=== PATIENT | female | born 1970 | race Caucasian/White ===

== ENCOUNTER 2017-12-13 20:14 | Inpatient (IN) | payer MEDICARE ==
[~2017-12-13] VITALS: Ht 165.1 cm; Wt 104.3 kg
[2017-12-13] MEDS ORDERED: Hydromorphone 0.5mg/0.5ml inj IVP ONE ×2 (21:00→23:15)
--- NOTE | 2017-12-13 21:02 | Emergency Room Report ---
History of Present Illness General Chief Complaint: To Be Triaged Source: Patient Present Illness HPI Patient presents with 1 week of vomiting and diarrhea. She's also had fevers. She's had this before. She states that she has a history of colitis. Usually she is treated with Phenergan and Flagyl. The diarrhea has been brown in color. The abdominal pain is diffuse and cramping. She feels dehydrated at this time. She denies any dysuria. Pain rated 7/10, pressure, crampy, constant , not radiating. No URI sy, chest pain, rashes, headache, joint pain. Allergies: Coded Allergies: MORPHINE (Verified Allergy, Unknown, 12/13/17) ZOLPIDEM (Verified Allergy, Unknown, 12/13/17) Patient History Past Medical History: see triage record Social History: Denies: smoking, alcohol use Social History Narrative from home Reviewed Nursing Documentation: PMH: Agreed; PSxH: Agreed Physical Exam Vital Signs Date Time Temp Pulse Resp B/P (MAP) Pulse Ox O2 Delivery O2 Flow Rate FiO2 12/13/17 21:00 99.3 111 16 143/93 94 Room Air 99.3 Sp02 EP Interpretation: reviewed, normal General Appearance: well appearing, no apparent distress, GCS 15 Head: normocephalic Eyes: bilateral eye normal inspection, bilateral eye PERRL ENT: moist mucus membranes Neck: supple Respiratory: lungs clear, normal breath sounds Cardiovascular #1: regular rate, rhythm Cardiovascular #2: 2+ radial (R) Gastrointestinal: normal inspection, normal bowel sounds, no mass, non- distended, no guarding, no rebound, tenderness - LLQ Genitourinary: no CVA tenderness Musculoskeletal: back normal, gait/station normal, normal range of motion Neurologic: alert, oriented x3, grossly normal Psychiatric: mood/affect normal Skin: normal inspection, warm/dry, other - malar erythema - plethoric Medical Decision Making Diagnostic Impression: Primary Impression: Colitis Additional Impressions: Renal insufficiency Hyponatremia ER Course Patient presents with history of colitis and abdominal pain vomiting and diarrhea. Differential includes colitis, gastroenteritis, diverticulitis, urinary tract infection amongst others. The patient will be evaluated with a labs and urinalysis. The patient will be treated with IV hydration, Zofran and a dose of Dilaudid. WBC elevated. Renal insufficiency. Hyponatremia. (No prior h/o renal insufficiency according to patient.) Exam improved. Still with LLQ pain. Antibiotics begun. Admit med. Examined by Dr. Sinclair. Repeat dose of dilaudid. Laboratory Tests Test 12/13/17 21:30 White Blood Count 14.0 K/UL (4.8-10.8) H Red Blood Count 4.95 M/UL (4.20-5.40) Hemoglobin 14.5 G/DL (12.0-16.0) Hematocrit 43.1 % (37.0-47.0) Mean Corpuscular Volume 87 FL (80-99) Mean Corpuscular Hemoglobin 29.3 PG (27.0-31.0) Mean Corpuscular Hemoglobin Concent 33.6 G/DL (32.0-36.0) Red Cell Distribution Width 12.4 % (11.6-14.8) Platelet Count 448 K/UL (150-450) Mean Platelet Volume 6.4 FL (6.5-10.1) L Neutrophils (%) (Auto) 57.7 % (45.0-75.0) Lymphocytes (%) (Auto) 35.7 % (20.0-45.0) Monocytes (%) (Auto) 4.8 % (1.0-10.0) Eosinophils (%) (Auto) 0.5 % (0.0-3.0) Basophils (%) (Auto) 1.3 % (0.0-2.0) Urine Color Brown Urine Appearance Slightly cloudy Urine pH 5 (4.5-8.0) Urine Specific [place] 1.025 (1.005-1.035) Urine Protein 2+ (NEGATIVE) H Urine Glucose (UA) 1+ (NEGATIVE) H Urine Ketones 2+ (NEGATIVE) H Urine Blood Negative (NEGATIVE) Urine Nitrite Negative (NEGATIVE) Urine Bilirubin 2+ (NEGATIVE) H Urine Ictotest Negative (NEGATIVE) Urine Urobilinogen 1 MG/DL (0.0-1.0) H Urine Leukocyte Esterase 1+ (NEGATIVE) H Urine RBC 0-2 /HPF (0 - 2) Urine WBC 2-4 /HPF (0 - 2) Urine Squamous Epithelial Cells Few /LPF (NONE/OCC) Urine Bacteria Few /HPF (NONE) Urine HCG, Qualitative Negative (NEGATIVE) Sodium Level 130 MMOL/L (136-145) L Potassium Level 3.8 MMOL/L (3.5-5.1) Chloride Level 89 MMOL/L (98-107) L Carbon Dioxide Level 26 MMOL/L (21-32) Anion Gap 15 mmol/L (5-15) Blood Urea Nitrogen 19 mg/dL (7-18) H Creatinine 1.6 MG/DL (0.55-1.30) H Estimate Glomerular Filtration Rate 34.4 mL/min (>60) Glucose Level 222 MG/DL (74-106) H Calcium Level 9.7 MG/DL (8.5-10.1) Total Bilirubin 0.5 MG/DL (0.2-1.0) Aspartate Amino Transferase (AST) 53 U/L (15-37) H Alanine Aminotransferase (ALT) 88 U/L (12-78) H Alkaline Phosphatase 76 U/L (46-116) Total Protein 9.3 G/DL (6.4-8.2) H Albumin 4.2 G/DL (3.4-5.0) Globulin 5.1 g/dL Albumin/Globulin Ratio 0.8 (1.0-2.7) L Lipase 86 U/L (73-393) Last Vital Signs Date Time Temp Pulse Resp B/P (MAP) Pulse Ox O2 Delivery O2 Flow Rate FiO2 12/14/17 08:00 97.7 91 20 134/88 (103) 92 97.7 12/14/17 01:55 Room Air Status: improved Disposition: ADMITTED INPATIENT Condition: Serious Davion Lozano M.D. Dec 13, 2017 21:02
[2017-12-13] MEDS ORDERED: METFORMIN HCL1000 M1 ORAL (21:07)
[2017-12-13 21:14] VITALS: BP 143/93
[2017-12-13 22:16] VITALS: BP 125/82
[2017-12-13 22:21] LABS: BASOPHILS % (AUTO) 1.3 % (0.0-2.0); BILIRUBIN, URINE 2+ (NEGATIVE); COLOR,URINE BROWN; EOSINOPHILS % (AUTO) 0.5 % (0.0-3.0); GLUCOSE, URINE (UA) 1+ (NEGATIVE); HEMATOCRIT 43.1 % (37.0-47.0); HEMOGLOBIN 14.5 G/DL (12.0-16.0); KETONES,URINE 2+ (NEGATIVE); LEUKOCYTE ESTERASE ,URINE 1+ (NEGATIVE); LYMPHOCYTES % (AUTO) 35.7 % (20.0-45.0); MEAN CORPUSCULAR VOLUME 87 FL (80-99); MONOCYTES % (AUTO) 4.8 % (1.0-10.0); NEUTROPHILS % (AUTO) 57.7 % (45.0-75.0); NITRITE,URINE NEGATIVE (NEGATIVE); PH,URINE 5 (4.5-8.0); PLATELET COUNT 448 K/UL (150-450); PROTEIN,URINE 2+ (NEGATIVE); RED BLOOD COUNT 4.95 M/UL (4.20-5.40); RED CELL DISTRIBUTION WIDTH 12.4 % (11.6-14.8); UROBILINOGEN,URINE 1 MG/DL (0.0-1.0)
[2017-12-13 22:24] LABS: ANION GAP 15 mmol/L (5-15); BLOOD UREA NITROGEN 19 mg/dL (7-18); CALCIUM 9.7 MG/DL (8.5-10.1); CARBON DIOXIDE 26 MMOL/L (21-32); CHLORIDE 89 MMOL/L (98-107); CREATININE 1.6 MG/DL (0.55-1.30); POTASSIUM 3.8 MMOL/L (3.5-5.1); SODIUM 130 MMOL/L (136-145)
[2017-12-13 22:28] LABS: APPEARANCE,URINE SLIGHTLY CLOUDY
[2017-12-13 22:29] LABS: ALANINE AMINOTRANSFERASE 88 U/L (12-78); ALBUMIN 4.2 G/DL (3.4-5.0); ALBUMIN/GLOBULIN RATIO 0.8 (1.0-2.7); ALKALINE PHOSPHATASE 76 U/L (46-116); ASPARTATE AMINO TRANSFERASE 53 U/L (15-37); BILIRUBIN,TOTAL 0.5 MG/DL (0.2-1.0)
[2017-12-13] MEDS ORDERED: Cefepime HCl 1 GM in D5W 55 ML IVPB ONE (23:15)
[2017-12-13 23:55] VITALS: BP 117/67
--- NOTE | 2017-12-14 00:21 | Consultation ---
History of Present Illness General Date patient seen: Dec 14, 2017 Chief Complaint: Nausea, Vomiting, and Diarrhea Reason for Consultation: diverticulitis Present Illness HPI 47F otherwise healthy presented with abdominal pain for 6 days. States that after her birthday on the she began to develop worsening lower abdominal pain. pain cramping left sided lower abdominal pain 10. pain associated with nausea, emesis, and non blood diarrhea. as pain and symptoms did not improve she came to ED for evaluation today. In ED noted to have leukocytosis and exam with LLQ tenderness. Surgery called to evaluate. patient seen, chart reviewed, patient examined. States history of two similar prior episodes. First episode 3 years ago and was hospitalized for 8 days. Second episode was last year and was managed at home with oral abx under supervision of her PCP. Since has been well until recent episode. Currently improving since given pain medication in ED. Has had colonoscopy and EGD in past. Allergies: Coded Allergies: MORPHINE (Verified Allergy, Unknown, 12/13/17) ZOLPIDEM (Verified Allergy, Unknown, 12/13/17) Medication History Scheduled Metformin Hcl* (Metformin Hcl*), 1,000 MG ORAL BID, (Reported) Patient History History Provided By: Patient, Medical Record, PMD Healthcare decision maker Resuscitation status Advanced Directive on File Past Medical/Surgical History Past Medical/Surgical History: (1) Hyponatremia (2) Renal insufficiency (3) Colitis Review of Systems Constitutional: Denies: no symptoms, see HPI, chills, sweats, fever, malaise, weakness, other Eye: Denies: no symptoms, see HPI, eye pain, blurred vision, tearing, double vision, nose pain, nose congestion, acuity changes, discharge, other ENT: Denies: no symptoms, see HPI, ear pain, ear discharge, nose pain, nose congestion, throat pain, throat swelling, mouth pain, hearing loss, nasal discharge, other Respiratory: Denies: no symptoms, see HPI, cough, orthopnea, shortness of breath, stridor, wheezing, SWAIN, sputum, other Cardiovascular: Denies: no symptoms, see HPI, chest pain, edema, palpitations, syncope, PND, other Gastrointestinal: Reports: abdominal pain, diarrhea, nausea, vomiting Genitourinary: Denies: no symptoms, see HPI, discharge, dysuria, frequency, hematuria, pain, retention, incontinence, urgency, vag bleed/dc, other Musculoskeletal: Denies: no symptoms, see HPI, back pain, gout, joint pain, joint swelling, muscle pain, muscle stiffness, other Skin: Denies: no symptoms, see HPI, rash, change in color, change in hair/nails , dryness, lesions, other Psychiatric: Denies: no symptoms, see HPI, prior hx, anxiety, depressed feelings, emotional problems, SI, HI, hallucinations, other Neurological: Denies: no symptoms, see HPI, headache, numbness, paresthesia, seizure, tingling, tremors, focal weakness, syncope, dizziness, other Endocrine: Denies: no symptoms, see HPI, excessive sweating, flushing, intolerance to temperature, increased thirst, increased urine, unexplained weight loss, other Hematologic/Lymphatic: Denies: no symptoms, see HPI, anemia, blood clots, easy bleeding, easy bruising, swollen glands, diathesis, other All Other Systems: negative except mentioned in HPI Physical Exam General Appearance: no apparent distress, alert Lines, tubes and drains: peripheral HEENT: atraumatic, mucous membranes moist Neck: supple, normal inspection Respiratory/Chest: normal breath sounds, no respiratory distress, no accessory muscle use Cardiovascular/Chest: normal rate, regular rhythm Abdomen: normal bowel sounds, soft, no organomegaly, no mass, tender - tender, no rebound, no guarding Extremities: normal inspection Skin Exam: normal pigmentation, warm/dry Neurologic: crane rigger II-XII grossly normal, alert, oriented x 3 Last 24 Hour Vital Signs Date Time Temp Pulse Resp B/P (MAP) Pulse Ox O2 Delivery O2 Flow Rate FiO2 12/13/17 23:55 98.9 105 17 117/67 94 Room Air 98.9 12/13/17 23:29 99.3 12/13/17 22:16 99.3 102 16 125/82 94 Room Air 99.3 12/13/17 22:12 99.3 12/13/17 22:12 99.3 12/13/17 21:42 99.3 12/13/17 21:14 99.3 111 16 143/93 94 Room Air 99.3 12/13/17 21:00 99.3 111 16 143/93 94 Room Air 99.3 Laboratory Tests Test 12/13/17 21:30 White Blood Count 14.0 K/UL (4.8-10.8) H Red Blood Count 4.95 M/UL (4.20-5.40) Hemoglobin 14.5 G/DL (12.0-16.0) Hematocrit 43.1 % (37.0-47.0) Mean Corpuscular Volume 87 FL (80-99) Mean Corpuscular Hemoglobin 29.3 PG (27.0-31.0) Mean Corpuscular Hemoglobin Concent 33.6 G/DL (32.0-36.0) Red Cell Distribution Width 12.4 % (11.6-14.8) Platelet Count 448 K/UL (150-450) Mean Platelet Volume 6.4 FL (6.5-10.1) L Neutrophils (%) (Auto) 57.7 % (45.0-75.0) Lymphocytes (%) (Auto) 35.7 % (20.0-45.0) Monocytes (%) (Auto) 4.8 % (1.0-10.0) Eosinophils (%) (Auto) 0.5 % (0.0-3.0) Basophils (%) (Auto) 1.3 % (0.0-2.0) Urine Color Brown Urine Appearance Slightly cloudy Urine pH 5 (4.5-8.0) Urine Specific [place] 1.025 (1.005-1.035) Urine Protein 2+ (NEGATIVE) H Urine Glucose (UA) 1+ (NEGATIVE) H Urine Ketones 2+ (NEGATIVE) H Urine Blood Negative (NEGATIVE) Urine Nitrite Negative (NEGATIVE) Urine Bilirubin 2+ (NEGATIVE) H Urine Ictotest Negative (NEGATIVE) Urine Urobilinogen 1 MG/DL (0.0-1.0) H Urine Leukocyte Esterase 1+ (NEGATIVE) H Urine RBC 0-2 /HPF (0 - 2) Urine WBC 2-4 /HPF (0 - 2) Urine Squamous Epithelial Cells Few /LPF (NONE/OCC) Urine Bacteria Few /HPF (NONE) Urine HCG, Qualitative Negative (NEGATIVE) Sodium Level 130 MMOL/L (136-145) L Potassium Level 3.8 MMOL/L (3.5-5.1) Chloride Level 89 MMOL/L (98-107) L Carbon Dioxide Level 26 MMOL/L (21-32) Anion Gap 15 mmol/L (5-15) Blood Urea Nitrogen 19 mg/dL (7-18) H Creatinine 1.6 MG/DL (0.55-1.30) H Estimat Glomerular Filtration Rate 34.4 mL/min (>60) Glucose Level 222 MG/DL (74-106) H Calcium Level 9.7 MG/DL (8.5-10.1) Total Bilirubin 0.5 MG/DL (0.2-1.0) Aspartate Amino Transf (AST/SGOT) 53 U/L (15-37) H Alanine Aminotransferase (ALT/SGPT) 88 U/L (12-78) H Alkaline Phosphatase 76 U/L (46-116) Total Protein 9.3 G/DL (6.4-8.2) H Albumin 4.2 G/DL (3.4-5.0) Globulin 5.1 g/dL Albumin/Globulin Ratio 0.8 (1.0-2.7) L Lipase 86 U/L (73-393) Height (Feet): 5 Height (Inches): 5.00 Weight (Pounds): 230 Medications Current Medications Medications (Trade) Dose Ordered Sig/Tiff Route PRN Reason Start Time Stop Time Status Last Admin Dose Admin Acetaminophen (Tylenol) 650 mg Q4H PRN ORAL Mild Pain (Pain Scale 1-3) 12/14/17 00:00 01/13/18 00:00 Dextrose (Dextrose 50%) 25 ml Q30M PRN IV Hypoglycemia 12/14/17 00:00 01/13/18 00:00 Dextrose (Dextrose 50%) 50 ml Q30M PRN IV Hypoglycemia 12/14/17 00:00 01/13/18 00:00 Enoxaparin Sodium (Lovenox) 40 mg DAILY SUBQ 12/14/17 09:00 01/13/18 08:59 Insulin Aspart (NovoLOG) BEFORE MEALS AND HS SUBQ 12/14/17 06:30 01/13/18 06:29 Ondansetron HCl (Zofran) 4 mg Q6H PRN IVP Nausea & Vomiting 12/14/17 00:00 01/13/18 00:00 Sodium Chloride 1,000 ml @ 125 mls/hr Q8H IVLG 12/14/17 00:50 01/13/18 00:49 Assessment/Plan Problem List: (1) Colitis Assessment & Plan: 47F with acute colitis/diverticulitis. Afebrile, HD stable , leukocytosis, exam with LLQ tenderness. No acute surgical intervention indicated NPO IV fluids IV Abx serial abdominal exams thank you for this consultation. will follow with recs. ICD Codes: K52.9 - Noninfective gastroenteritis and colitis, unspecified SNOMED: [id number] Status: stable Joe Sinclair Dec 14, 2017 00:21
[2017-12-14 01:20] VITALS: BP 137/89
[2017-12-14] MEDS: Piperacillin/Tazobactam 3.375 GM in NS 110 ML IVPB SCH ×3 (03:19→18:06)
[2017-12-14] MEDS: HYDROmorphone 1mg/ml Carpuject IVP PRN ×5 (03:20→20:30)
[2017-12-14 04:00] VITALS: BP 122/75
[2017-12-14 05:04] LABS: BASOPHILS % (AUTO) 1.7 % (0.0-2.0); EOSINOPHILS % (AUTO) 1.8 % (0.0-3.0); HEMATOCRIT 35.4 % (37.0-47.0); MEAN CORPUSCULAR VOLUME 85 FL (80-99); MONOCYTES % (AUTO) 8.8 % (1.0-10.0); NEUTROPHILS % (AUTO) 49.8 % (45.0-75.0); PLATELET COUNT 299 K/UL (150-450); RED BLOOD COUNT 4.17 M/UL (4.20-5.40); WHITE BLOOD COUNT 9.7 K/UL (4.8-10.8)
[2017-12-14 05:15] LABS: ANION GAP 9 mmol/L (5-15); BLOOD UREA NITROGEN 15 mg/dL (7-18); CALCIUM 8.5 MG/DL (8.5-10.1); CARBON DIOXIDE 29 MMOL/L (21-32); CHLORIDE 96 MMOL/L (98-107); POTASSIUM 2.8 MMOL/L (3.5-5.1); SODIUM 134 MMOL/L (136-145)
[2017-12-14] MEDS: NovoLOG Insulin Flexpen SUBQ SCH ×5 (06:03→20:35)
[2017-12-14 08:00] VITALS: BP 134/88
[2017-12-14] MEDS: Enoxaparin 40mg Inj SUBQ SCH (10:16)
[2017-12-14] MEDS ORDERED: Tubing IV Secondary IV ONE (10:31)
[2017-12-14 12:00] VITALS: BP 125/91
[2017-12-14] MEDS ORDERED: Isovue-300 100ml vial INJ PRN (12:00)
--- NOTE | 2017-12-14 12:00 | General Surgery Progress Note ---
General Surgery-Progress Note Subjective Symptoms: pain same, passing flatus Additional Comments no acute events. states pain unchanged. still LLQ abd pain. no n/v/f/c. leukocytosis resolved Objective Last 24 Hour Vital Signs Date Time Temp Pulse Resp B/P (MAP) Pulse Ox O2 Delivery O2 Flow Rate FiO2 12/14/17 08:00 97.7 91 20 134/88 (103) 92 97.7 12/14/17 04:00 98.9 92 18 122/75 (91) 94 98.9 12/14/17 01:55 Room Air 12/14/17 01:20 98.2 83 20 137/89 (105) 94 98.2 12/14/17 01:03 98.0 81 20 136/69 96 12/13/17 23:55 98.9 105 17 117/67 94 Room Air 98.9 12/13/17 23:29 99.3 12/13/17 22:16 99.3 102 16 125/82 94 Room Air 99.3 12/13/17 22:12 99.3 12/13/17 22:12 99.3 12/13/17 21:42 99.3 12/13/17 21:14 99.3 111 16 143/93 94 Room Air 99.3 12/13/17 21:00 99.3 111 16 143/93 94 Room Air 99.3 I&O Intake and Output 12/13/17 12/14/17 19:00 07:00 Intake Total 207.5 ml Balance 207.5 ml Intake IV Total 207.5 ml # Voids 3 Drains: none Cardiovascular: RSR Respiratory: clear Abdomen: soft, flat, tenderness, present bowel sounds Extremities: no tenderness, no cyanosis Laboratory Tests Test 12/13/17 21:30 12/14/17 04:26 White Blood Count 14.0 K/UL (4.8-10.8) H 9.7 K/UL (4.8-10.8) Red Blood Count 4.95 M/UL (4.20-5.40) 4.17 M/UL (4.20-5.40) L Hemoglobin 14.5 G/DL (12.0-16.0) 12.0 G/DL (12.0-16.0) Hematocrit 43.1 % (37.0-47.0) 35.4 % (37.0-47.0) L Mean Corpuscular Volume 87 FL (80-99) 85 FL (80-99) Mean Corpuscular Hemoglobin 29.3 PG (27.0-31.0) 28.8 PG (27.0-31.0) Mean Corpuscular Hemoglobin Concent 33.6 G/DL (32.0-36.0) 33.9 G/DL (32.0-36.0) Red Cell Distribution Width 12.4 % (11.6-14.8) 12.0 % (11.6-14.8) Platelet Count 448 K/UL (150-450) 299 K/UL (150-450) Mean Platelet Volume 6.4 FL (6.5-10.1) L 7.1 FL (6.5-10.1) Neutrophils (%) (Auto) 57.7 % (45.0-75.0) 49.8 % (45.0-75.0) Lymphocytes (%) (Auto) 35.7 % (20.0-45.0) 38.0 % (20.0-45.0) Monocytes (%) (Auto) 4.8 % (1.0-10.0) 8.8 % (1.0-10.0) Eosinophils (%) (Auto) 0.5 % (0.0-3.0) 1.8 % (0.0-3.0) Basophils (%) (Auto) 1.3 % (0.0-2.0) 1.7 % (0.0-2.0) Urine Color Brown Urine Appearance Slightly cloudy Urine pH 5 (4.5-8.0) Urine Specific [place] 1.025 (1.005-1.035) Urine Protein 2+ (NEGATIVE) H Urine Glucose (UA) 1+ (NEGATIVE) H Urine Ketones 2+ (NEGATIVE) H Urine Blood Negative (NEGATIVE) Urine Nitrite Negative (NEGATIVE) Urine Bilirubin 2+ (NEGATIVE) H Urine Ictotest Negative (NEGATIVE) Urine Urobilinogen 1 MG/DL (0.0-1.0) H Urine Leukocyte Esterase 1+ (NEGATIVE) H Urine RBC 0-2 /HPF (0 - 2) Urine WBC 2-4 /HPF (0 - 2) Urine Squamous Epithelial Cells Few /LPF (NONE/OCC) Urine Bacteria Few /HPF (NONE) Urine HCG, Qualitative Negative (NEGATIVE) Sodium Level 130 MMOL/L (136-145) L 134 MMOL/L (136-145) L Potassium Level 3.8 MMOL/L (3.5-5.1) 2.8 MMOL/L (3.5-5.1) L Chloride Level 89 MMOL/L (98-107) L 96 MMOL/L (98-107) L Carbon Dioxide Level 26 MMOL/L (21-32) 29 MMOL/L (21-32) Anion Gap 15 mmol/L (5-15) 9 mmol/L (5-15) Blood Urea Nitrogen 19 mg/dL (7-18) H 15 mg/dL (7-18) Creatinine 1.6 MG/DL (0.55-1.30) H 1.0 MG/DL (0.55-1.30) Estimat Glomerular Filtration Rate 34.4 mL/min (>60) 59.2 mL/min (>60) Glucose Level 222 MG/DL (74-106) H 172 MG/DL (74-106) H Calcium Level 9.7 MG/DL (8.5-10.1) 8.5 MG/DL (8.5-10.1) Total Bilirubin 0.5 MG/DL (0.2-1.0) Aspartate Amino Transf (AST/SGOT) 53 U/L (15-37) H Alanine Aminotransferase (ALT/SGPT) 88 U/L (12-78) H Alkaline Phosphatase 76 U/L (46-116) Total Protein 9.3 G/DL (6.4-8.2) H Albumin 4.2 G/DL (3.4-5.0) Globulin 5.1 g/dL Albumin/Globulin Ratio 0.8 (1.0-2.7) L Lipase 86 U/L (73-393) Plan Problems: (1) Colitis Assessment & Plan: 47F with acute colitis/diverticulitis. Afebrile, HD stable , leukocytosis, exam with LLQ tenderness. leukocytosis resolved pain unchanged No acute surgical intervention indicated NPO IV fluids IV Abx CT A/P today thank you for this consultation. will follow with recs. Joe Sinclair Dec 14, 2017 12:00
--- NOTE | 2017-12-14 12:15 | History and Physical Report ---
DATE OF ADMISSION: 12/13/2017 DATE OF ADMISSION: December 14, 2017 REASON FOR ADMISSION: 1. Abdominal pain. 2. Diverticulitis. 3. Hyponatremia. 4. Acute kidney injury. HISTORY OF PRESENT ILLNESS: The patient is a pleasant 47-year-old female visiting from [place] in [place]. She presented to emergency room overnight with worsening abdominal pain for 6 days that started after her birthday on the [birth year] of [birth year]. She is visiting again here in [place] from [place] in [place]. She has had previous diverticulitis episodes where she notes that the pain will last anywhere from 4 to 8 days and requiring hospitalization in the past. She had a colonoscopy and an EGD in the past. General Surgery has evaluated the patient. IV antibiotics have been initiated. The patient is resting comfortably. Creatinine on admission was 1.6. The patient had no renal dysfunction prior to this. ALLERGIES: Morphine and zolpidem. PAST MEDICAL HISTORY: 1. Diverticulitis. 2. Diabetes mellitus. 3. Obesity. FAMILY HISTORY: Positive for diabetes. PAST SURGICAL HISTORY: 1. Colonoscopy. 2. EGD. LABORATORIES: Dated December 14, 2017, sodium 134, potassium 2.8, creatinine 1. White cell count 9.7, hemoglobin 12, and platelet count 299,000. PHYSICAL EXAMINATION: VITAL SIGNS: Blood pressure 134/88, respiratory rate 20, 92% oxygen saturation on room air, temperature 97.7, pulse 91. GENERAL: The patient is awake, alert, not otherwise in distress. HEENT: No lymphadenopathy noted. Oropharyngeal mucosa, clear and dry. CARDIOVASCULAR: S1, S2. No rubs or gallops. Regular rate. PULMONARY: Clear to auscultation bilaterally. No rales, rhonchi, or wheeze. ABDOMEN: Obese with mild tenderness in all 4 quadrants. EXTREMITIES: No edema noted. Fair pedal pulses. ASSESSMENT AND PLAN: 1. Abdominal pain secondary to diverticulitis. IV antibiotics have been initiated. Infectious Disease has been consulted. Appreciate General Surgery evaluation and management. Continue conservative medical therapy at this time. Pain management per General Surgery. 2. Hypokalemia. The patient will receive 40 mEq of IV potassium. 3. Hyponatremia secondary to vascular volume depletion. It has improved. Continue IV fluids. 4. Acute kidney injury secondary to volume depletion. Creatinine has improved from 1.6 to 1.0. No further renal investigations required at this time. Continue IV fluids. 5. DVT prophylaxis with Lovenox subcutaneous. Cosme Stoner MD DR: Robert JOB#: [id number] CC: MARIO
[2017-12-14] MEDS: D5 1/2NS 1,000 ML IV SCH ×2 (12:43→22:39)
--- NOTE | 2017-12-14 14:07 | Infectious Diseases Prog Note ---
Assessment/Plan Problems: (1) Diverticulitis Assessment & Plan: rule out complications such as perforations , CT ABD with contrast is pending, continue zosyn empirically , general surgery is following (2) Abdominal pain Assessment & Plan: due to the above , continue paian management and antibiotics pending CT of the abdomen (3) Diarrhea Assessment & Plan: suspect due to the above, resolved, continue hydration (4) Sepsis Assessment & Plan: with leukocytosis , due to the above, will send blood culture, continue zosyn Subjective Allergies: Coded Allergies: MORPHINE (Verified Allergy, Unknown, 12/13/17) ZOLPIDEM (Verified Allergy, Unknown, 12/13/17) Objective Vital Signs Last 24 Hour Vital Signs Date Time Temp Pulse Resp B/P (MAP) Pulse Ox O2 Delivery O2 Flow Rate FiO2 12/14/17 12:00 98.8 85 20 125/91 (102) 94 98.8 12/14/17 08:00 97.7 91 20 134/88 (103) 92 97.7 12/14/17 04:00 98.9 92 18 122/75 (91) 94 98.9 12/14/17 01:55 Room Air 12/14/17 01:20 98.2 83 20 137/89 (105) 94 98.2 12/14/17 01:03 98.0 81 20 136/69 96 12/13/17 23:55 98.9 105 17 117/67 94 Room Air 98.9 12/13/17 23:29 99.3 12/13/17 22:16 99.3 102 16 125/82 94 Room Air 99.3 12/13/17 22:12 99.3 12/13/17 22:12 99.3 12/13/17 21:42 99.3 12/13/17 21:14 99.3 111 16 143/93 94 Room Air 99.3 12/13/17 21:00 99.3 111 16 143/93 94 Room Air 99.3 Height (Feet): 5 Height (Inches): 5.00 Weight (Pounds): 230 Laboratory Tests Test 12/13/17 21:30 12/14/17 04:26 White Blood Count 14.0 K/UL (4.8-10.8) H 9.7 K/UL (4.8-10.8) Red Blood Count 4.95 M/UL (4.20-5.40) 4.17 M/UL (4.20-5.40) L Hemoglobin 14.5 G/DL (12.0-16.0) 12.0 G/DL (12.0-16.0) Hematocrit 43.1 % (37.0-47.0) 35.4 % (37.0-47.0) L Mean Corpuscular Volume 87 FL (80-99) 85 FL (80-99) Mean Corpuscular Hemoglobin 29.3 PG (27.0-31.0) 28.8 PG (27.0-31.0) Mean Corpuscular Hemoglobin Concent 33.6 G/DL (32.0-36.0) 33.9 G/DL (32.0-36.0) Red Cell Distribution Width 12.4 % (11.6-14.8) 12.0 % (11.6-14.8) Platelet Count 448 K/UL (150-450) 299 K/UL (150-450) Mean Platelet Volume 6.4 FL (6.5-10.1) L 7.1 FL (6.5-10.1) Neutrophils (%) (Auto) 57.7 % (45.0-75.0) 49.8 % (45.0-75.0) Lymphocytes (%) (Auto) 35.7 % (20.0-45.0) 38.0 % (20.0-45.0) Monocytes (%) (Auto) 4.8 % (1.0-10.0) 8.8 % (1.0-10.0) Eosinophils (%) (Auto) 0.5 % (0.0-3.0) 1.8 % (0.0-3.0) Basophils (%) (Auto) 1.3 % (0.0-2.0) 1.7 % (0.0-2.0) Urine Color Brown Urine Appearance Slightly cloudy Urine pH 5 (4.5-8.0) Urine Specific [place] 1.025 (1.005-1.035) Urine Protein 2+ (NEGATIVE) H Urine Glucose (UA) 1+ (NEGATIVE) H Urine Ketones 2+ (NEGATIVE) H Urine Blood Negative (NEGATIVE) Urine Nitrite Negative (NEGATIVE) Urine Bilirubin 2+ (NEGATIVE) H Urine Ictotest Negative (NEGATIVE) Urine Urobilinogen 1 MG/DL (0.0-1.0) H Urine Leukocyte Esterase 1+ (NEGATIVE) H Urine RBC 0-2 /HPF (0 - 2) Urine WBC 2-4 /HPF (0 - 2) Urine Squamous Epithelial Cells Few /LPF (NONE/OCC) Urine Bacteria Few /HPF (NONE) Urine HCG, Qualitative Negative (NEGATIVE) Sodium Level 130 MMOL/L (136-145) L 134 MMOL/L (136-145) L Potassium Level 3.8 MMOL/L (3.5-5.1) 2.8 MMOL/L (3.5-5.1) L Chloride Level 89 MMOL/L (98-107) L 96 MMOL/L (98-107) L Carbon Dioxide Level 26 MMOL/L (21-32) 29 MMOL/L (21-32) Anion Gap 15 mmol/L (5-15) 9 mmol/L (5-15) Blood Urea Nitrogen 19 mg/dL (7-18) H 15 mg/dL (7-18) Creatinine 1.6 MG/DL (0.55-1.30) H 1.0 MG/DL (0.55-1.30) Estimat Glomerular Filtration Rate 34.4 mL/min (>60) 59.2 mL/min (>60) Glucose Level 222 MG/DL (74-106) H 172 MG/DL (74-106) H Calcium Level 9.7 MG/DL (8.5-10.1) 8.5 MG/DL (8.5-10.1) Total Bilirubin 0.5 MG/DL (0.2-1.0) Aspartate Amino Transf (AST/SGOT) 53 U/L (15-37) H Alanine Aminotransferase (ALT/SGPT) 88 U/L (12-78) H Alkaline Phosphatase 76 U/L (46-116) Total Protein 9.3 G/DL (6.4-8.2) H Albumin 4.2 G/DL (3.4-5.0) Globulin 5.1 g/dL Albumin/Globulin Ratio 0.8 (1.0-2.7) L Lipase 86 U/L (73-393) Current Medications Medications (Trade) Dose Ordered Sig/Tiff Route PRN Reason Start Time Stop Time Status Last Admin Dose Admin Acetaminophen (Tylenol) 650 mg Q4H PRN ORAL Mild Pain (Pain Scale 1-3) 12/14/17 00:00 01/13/18 00:00 Barium Sulfate (Readi-Cat 2) 450 ml NOW PRN ORAL Radiology Procedure 12/14/17 12:00 12/16/17 11:58 Dextrose (Dextrose 50%) 25 ml Q30M PRN IV Hypoglycemia 12/14/17 00:00 01/13/18 00:00 Dextrose (Dextrose 50%) 50 ml Q30M PRN IV Hypoglycemia 12/14/17 00:00 01/13/18 00:00 Dextrose/Sodium Chloride 1,000 ml @ 100 mls/hr Q10H IV 12/14/17 12:39 01/13/18 12:38 12/14/17 12:43 Enoxaparin Sodium (Lovenox) 40 mg DAILY SUBQ 12/14/17 09:00 01/13/18 08:59 12/14/17 10:16 Hydromorphone HCl (Dilaudid) 0.5 mg Q4H PRN IVP For Pain 12/14/17 01:45 12/21/17 01:44 12/14/17 12:15 Insulin Aspart (NovoLOG) BEFORE MEALS AND HS SUBQ 12/14/17 06:30 01/13/18 06:29 12/14/17 12:29 Iopamidol (Isovue-300 100ml) 100 ml NOW PRN INJ Radiology Procedure 12/14/17 12:00 Ondansetron HCl (Zofran) 4 mg Q6H PRN IVP Nausea & Vomiting 12/14/17 00:00 01/13/18 00:00 12/14/17 10:01 Piperacillin Sod/ Tazobactam Sod 3.375 gm/Sodium Chloride 110 ml @ 27.5 mls/hr Q8H IVPB 12/14/17 03:00 12/21/17 02:59 12/14/17 12:23 Pasquale Romo M.D. Dec 14, 2017 14:07
[2017-12-14 16:00] VITALS: BP 123/65
--- NOTE | 2017-12-14 16:30 | Consultation ---
DATE OF CONSULTATION: 12/14/2017 INFECTIOUS DISEASE CONSULTATION CONSULTING PHYSICIAN: Pasquale Romo M.D. REQUESTING PHYSICIAN: Cosme Stoner M.D. REASON FOR CONSULTATION: Sepsis, leukocytosis with diverticulitis, recommendation for antibiotics treatment. HISTORY OF PRESENT ILLNESS: The patient is a 47-year-old female, who has been visiting from [place], presented to the emergency room at [facility] with one-week history of abdominal pain, nausea, vomiting, and diarrhea. The patient had well known history of colitis in the past and she experienced this before this episode and once she required hospitalization for eight days due to one of these episode. The patient had diarrhea for almost six days and then it stopped completely for the last 48 hours. Her abdominal pain mainly localized in the left side of her abdomen with cramps, dull deep ache she described it as and she has not been eating or drinking much over the last 48 hours. No urinary symptoms. No relation to bowel movement or urination. She had fever and chills at some point, but this resolved. The patient was found to have temperature in the emergency room of 99.3, so she was started on Zosyn and Infectious Disease consultation was requested for antibiotics treatment and further management. REVIEW OF SYSTEMS: A 14-point of system reviewed were all negative apart from the one I mentioned above in my History and Physical. PAST MEDICAL HISTORY: Significant for diverticulitis, diabetes mellitus, and obesity. FAMILY HISTORY: Positive for diabetes. PAST SURGICAL HISTORY: She had in the past and she had underwent colonoscopy and EGD eight years ago. SOCIAL HISTORY: The patient lives in [place]. Denied using any drugs, tobacco, or alcohol. She is unemployed. ALLERGIES: She is allergic to morphine . MEDICATIONS: Currently, she is on Zosyn. For the rest of her medications, please refer to MAR. LABORATORY DATA: Laboratory showed white count of 14,000, hemoglobin of 14.5, and platelet count of 448. BUN of 19, creatinine of 1.6, AST of 53, ALT of 88. Lipase of 86. Urinalysis showed +1 leukocyte esterase and few bacteria. PHYSICAL EXAMINATION: VITAL SIGNS: Temperature 98.8, pulse 85, respirations 20, blood pressure 125/91, and saturation 94% on room air. GENERAL: An obese female, lying in bed, awake, alert, comfortable, not in acute distress. HEENT: Normocephalic and atraumatic. Pupils are reactive to light. Moist oral mucosa. No exudate. NECK: Supple. No lymphadenopathy. CARDIOVASCULAR: Regular rate and rhythm. No murmur or gallop. LUNGS: Clear bilaterally. No wheezing or rhonchi. Normal breathing effort. ABDOMEN: Soft, distended, obese. Tender in the left side. Hypoactive bowel sounds. No organomegaly. EXTREMITIES: No edema or cyanosis. ASSESSMENT AND RECOMMENDATION: 1. Diverticulitis, recurrent episode, rule out complication such as perforation. CT abdomen with contrast is pending at this point. Continue Zosyn empirically. General Surgery is following. 2. Abdominal pain due to the above. Continue pain management and antibiotics. Pending CT of the abdomen. 3. Diarrhea suspect due to diverticulitis, resolved at this point. Continue hydration. We will order stool study if she has any recurrent episode. 4. Sepsis with leukocytosis, suspect due to the above. We will send blood culture. Continue Zosyn empiric coverage for now. Thank you for the consult. ID will continue to follow. Pasquale Romo M.D. DR: CLAUDE JOB#: [id number] CC: MARIO
--- NOTE | 2017-12-14 17:42 | Diagnostic Imaging Report ---
EXAM: CT Abdomen and Pelvis Without And With Intravenous Contrast CLINICAL HISTORY: ABD PAIN TECHNIQUE: Axial computed tomography images of the abdomen and pelvis without contrast material in one or both body regions followed by contrast material and further imaging in one or both body regions. CTDI is 7.47 mGy and DLP is 1086.84 mGy-cm. One or more of the following dose reduction techniques were used: automated exposure control, adjustment of the mA and/or kV according to patient size, use of iterative reconstruction technique. COMPARISON: No relevant prior studies available. FINDINGS: Lung bases: Unremarkable. No mass. No consolidation. ABDOMEN: Liver: Fatty liver. Gallbladder and bile ducts: Distended gallbladder. No wall thickening or surrounding inflammation or fluid. No calcified stones. No ductal dilation. Pancreas: Unremarkable. No mass. No ductal dilation. Spleen: Unremarkable. No splenomegaly. Adrenals: Unremarkable. No mass. Kidneys and ureters: No obstructive uropathy. Stomach and bowel: Fluid within nondistended loops of small bowel and within stomach without bowel wall thickening or surrounding inflammation can be normal or can be seen with gastroenteritis in the right clinical setting. PELVIS: Appendix: No appendicitis, colitis, diverticulitis or bowel obstruction. No free air or free fluid. Bladder: Unremarkable. No mass. No stones. Reproductive: Unremarkable as visualized. ABDOMEN and PELVIS: Intraperitoneal space: See above. Bones/joints: No acute fracture. No dislocation. Soft tissues: Unremarkable. Vasculature: Unremarkable. No abdominal aortic aneurysm. Lymph nodes: Unremarkable. No enlarged lymph nodes. IMPRESSION: Fluid within nondistended loops of small bowel and within stomach without bowel wall thickening or surrounding inflammation can be normal or can be seen with gastroenteritis in the right clinical setting. No other acute or inflammatory disease or bowel obstruction.
[2017-12-14 20:00] VITALS: BP 121/65
[2017-12-15] VITALS: BP 120/70
[2017-12-15] MEDS: Piperacillin/Tazobactam 3.375 GM in NS 110 ML IVPB SCH ×3 (03:07→18:01)
[2017-12-15] MEDS: HYDROmorphone 1mg/ml Carpuject IVP PRN ×5 (03:15→22:24)
[2017-12-15 04:00] VITALS: BP 125/68
[2017-12-15] MEDS: D5 1/2NS 1,000 ML IV SCH ×2 (06:23→18:00)
[2017-12-15] MEDS: NovoLOG Insulin Flexpen SUBQ SCH ×4 (06:24→21:35)
[2017-12-15 08:00] VITALS: BP 114/69
[2017-12-15 08:31] LABS: BASOPHILS % (AUTO) 1.1 % (0.0-2.0); EOSINOPHILS % (AUTO) 2.8 % (0.0-3.0); HEMATOCRIT 36.6 % (37.0-47.0); HEMOGLOBIN 12.3 G/DL (12.0-16.0); LYMPHOCYTES % (AUTO) 36.4 % (20.0-45.0); MEAN CORPUSCULAR VOLUME 86 FL (80-99); MONOCYTES % (AUTO) 6.3 % (1.0-10.0); NEUTROPHILS % (AUTO) 53.4 % (45.0-75.0); PLATELET COUNT 286 K/UL (150-450); RED BLOOD COUNT 4.27 M/UL (4.20-5.40); RED CELL DISTRIBUTION WIDTH 12.6 % (11.6-14.8); WHITE BLOOD COUNT 6.9 K/UL (4.8-10.8)
[2017-12-15 08:56] LABS: ANION GAP 8 mmol/L (5-15); BLOOD UREA NITROGEN 5 mg/dL (7-18); CALCIUM 8.7 MG/DL (8.5-10.1); CARBON DIOXIDE 31 MMOL/L (21-32); CHLORIDE 100 MMOL/L (98-107); CREATININE 0.7 MG/DL (0.55-1.30); PHOSPHORUS 2.8 MG/DL (2.5-4.9); SODIUM 139 MMOL/L (136-145)
[2017-12-15] MEDS: Enoxaparin 40mg Inj SUBQ SCH (09:16)
--- NOTE | 2017-12-15 09:47 | Nephrology Progress Note ---
Assessment/Plan Assessment/Plan A/P 1) Abd Pain- resolving - Diverticulitis, WBC much improved - Abx per ID, await surgery clearance to allow po intake and ID to convert Abx to po - plan is for DC tomorrow 2) DVT porphylaxsis- lovenox 3) Hypokalemia- replace Subjective Date patient seen: Dec 15, 2017 Time patient seen: 09:44 ROS Limited/Unobtainable: No Gastrointestinal/Abdominal: Reports: abdominal pain Allergies: Coded Allergies: MORPHINE (Verified Allergy, Unknown, 12/13/17) ZOLPIDEM (Verified Allergy, Unknown, 12/13/17) Subjective Patient says abdominal pain much improved Objective Last 24 Hour Vital Signs Date Time Temp Pulse Resp B/P (MAP) Pulse Ox O2 Delivery O2 Flow Rate FiO2 12/15/17 04:00 97.5 64 19 125/68 (87) 96 97.5 12/15/17 00:00 97.9 70 18 120/70 (87) 95 97.9 12/14/17 21:00 Room Air 12/14/17 20:00 98.1 80 17 121/65 (83) 93 98.1 12/14/17 16:00 100.4 90 20 123/65 (84) 98 100.4 12/14/17 12:00 98.8 85 20 125/91 (102) 94 98.8 Intake and Output 12/14/17 12/15/17 19:00 07:00 Intake Total 710.0 ml 982.5 ml Balance 710.0 ml 982.5 ml IV Total 710.0 ml 982.5 ml # Voids 1 Laboratory Tests 12/15/17 07:10: White Blood Count 6.9, Red Blood Count 4.27, Hemoglobin 12.3, Hematocrit 36.6L, Mean Corpuscular Volume 86, Mean Corpuscular Hemoglobin 28.8, Mean Corpuscular Hemoglobin Concent 33.6, Red Cell Distribution Width 12.6, Platelet Count 286, Mean Platelet Volume 6.6, Neutrophils (%) (Auto) 53.4, Lymphocytes (%) (Auto) 36.4, Monocytes (%) (Auto) 6.3, Eosinophils (%) (Auto) 2.8, Basophils (%) (Auto ) 1.1, Sodium Level 139, Potassium Level 3.0L, Chloride Level 100, Carbon Dioxide Level 31, Anion Gap 8, Blood Urea Nitrogen 5L, Creatinine 0.7, Estimat Glomerular Filtration Rate > 60, Glucose Level 194H, Calcium Level 8.7, Phosphorus Level 2.8, Magnesium Level 1.5L Height (Feet): 5 Height (Inches): 5.00 Weight (Pounds): 230 General Appearance: no apparent distress, alert EENT: normal ENT inspection Neck: normal alignment, supple Cardiovascular: normal rate, regular rhythm Respiratory/Chest: lungs clear, normal breath sounds Abdomen: non tender, soft Edema: no edema noted Arm (L), no edema noted Arm (R), no edema noted Leg (L), no edema noted Leg (R), no edema noted Pedal (L), no edema noted Pedal (R), no edema noted Generalized Cosme Stoner MD Dec 15, 2017 09:47
--- NOTE | 2017-12-15 11:20 | General Surgery Progress Note ---
General Surgery-Progress Note Subjective Additional Comments CT reviewed. pain improving. no n/v/f/c. labs okay Objective Last 24 Hour Vital Signs Date Time Temp Pulse Resp B/P (MAP) Pulse Ox O2 Delivery O2 Flow Rate FiO2 12/15/17 09:00 Room Air 12/15/17 08:00 98.1 83 18 114/69 (84) 93 98.1 12/15/17 04:00 97.5 64 19 125/68 (87) 96 97.5 12/15/17 00:00 97.9 70 18 120/70 (87) 95 97.9 12/14/17 21:00 Room Air 12/14/17 20:00 98.1 80 17 121/65 (83) 93 98.1 12/14/17 16:00 100.4 90 20 123/65 (84) 98 100.4 12/14/17 12:00 98.8 85 20 125/91 (102) 94 98.8 I&O Intake and Output 12/14/17 12/15/17 19:00 07:00 Intake Total 710.0 ml 982.5 ml Balance 710.0 ml 982.5 ml IV Total 710.0 ml 982.5 ml # Voids 1 Drains: none Cardiovascular: RSR Respiratory: clear Abdomen: soft, flat, tenderness, present bowel sounds Extremities: no edema, no tenderness, no cyanosis Laboratory Tests Test 12/15/17 07:10 White Blood Count 6.9 K/UL (4.8-10.8) Red Blood Count 4.27 M/UL (4.20-5.40) Hemoglobin 12.3 G/DL (12.0-16.0) Hematocrit 36.6 % (37.0-47.0) L Mean Corpuscular Volume 86 FL (80-99) Mean Corpuscular Hemoglobin 28.8 PG (27.0-31.0) Mean Corpuscular Hemoglobin Concent 33.6 G/DL (32.0-36.0) Red Cell Distribution Width 12.6 % (11.6-14.8) Platelet Count 286 K/UL (150-450) Mean Platelet Volume 6.6 FL (6.5-10.1) Neutrophils (%) (Auto) 53.4 % (45.0-75.0) Lymphocytes (%) (Auto) 36.4 % (20.0-45.0) Monocytes (%) (Auto) 6.3 % (1.0-10.0) Eosinophils (%) (Auto) 2.8 % (0.0-3.0) Basophils (%) (Auto) 1.1 % (0.0-2.0) Sodium Level 139 MMOL/L (136-145) Potassium Level 3.0 MMOL/L (3.5-5.1) L Chloride Level 100 MMOL/L (98-107) Carbon Dioxide Level 31 MMOL/L (21-32) Anion Gap 8 mmol/L (5-15) Blood Urea Nitrogen 5 mg/dL (7-18) L Creatinine 0.7 MG/DL (0.55-1.30) Estimat Glomerular Filtration Rate > 60 mL/min (>60) Glucose Level 194 MG/DL (74-106) H Calcium Level 8.7 MG/DL (8.5-10.1) Phosphorus Level 2.8 MG/DL (2.5-4.9) Magnesium Level 1.5 MG/DL (1.8-2.4) L Plan Problems: (1) Colitis Assessment & Plan: 47F with acute colitis/diverticulitis. Afebrile, HD stable , leukocytosis, exam with LLQ tenderness. Fluid within nondistended loops of small bowel and within stomach without bowel wall thickening or surrounding inflammation can be normal or can be seen with gastroenteritis in the right clinical setting. No other acute or inflammatory disease or bowel obstruction. leukocytosis resolved pain improving No acute surgical intervention indicated start clear liquids IV Abx thank you for this consultation. will follow with recs. Joe Sinclair Dec 15, 2017 11:20
[2017-12-15 12:00] VITALS: BP 114/69
[2017-12-15] MEDS ORDERED: Flu Vaccine (Alfuria) for Pts Less than 65 Years old IM ONE (12:00)
[2017-12-15 16:00] VITALS: BP 125/85
[2017-12-15 20:00] VITALS: BP 137/90
--- NOTE | 2017-12-15 21:17 | Infectious Diseases Prog Note ---
Assessment/Plan Problems: (1) Diverticulitis Assessment & Plan: with no evidence of complications on CT ABD such as perforations or abscess , continue zosyn empirically pending blood culture , general surgery is following (2) Abdominal pain Assessment & Plan: due to the above , continue pain management and supportive care (3) Diarrhea Assessment & Plan: suspect due to the above, resolved, continue hydration (4) Sepsis Assessment & Plan: with leukocytosis , due to the above, blood culture is pending , continue zosyn Subjective Constitutional: Reports: no symptoms HEENT: Reports: no symptoms Respiratory: Reports: no symptoms Breasts: Reports: no symptoms Cardiovascular: Reports: no symptoms Gastrointestinal/Abdominal: Reports: constipation, bloating Genitourinary: Reports: no symptoms Neurologic: Reports: no symptoms Psychiatric: Reports: no symptoms Skin: Reports: no symptoms Endocrine: Reports: no symptoms Hematologic: Reports: no symptoms Musculoskeletal: Reports: no symptoms Allergies: Coded Allergies: MORPHINE (Verified Allergy, Unknown, 12/13/17) ZOLPIDEM (Verified Allergy, Unknown, 12/13/17) Objective Vital Signs Last 24 Hour Vital Signs Date Time Temp Pulse Resp B/P (MAP) Pulse Ox O2 Delivery O2 Flow Rate FiO2 12/15/17 20:48 Room Air 12/15/17 20:00 98.1 73 20 137/90 (106) 97 98.1 12/15/17 19:40 Room Air 12/15/17 16:00 98.1 69 18 125/85 (98) 95 98.1 12/15/17 12:00 98.1 78 18 114/69 (84) 93 98.1 12/15/17 09:00 Room Air 12/15/17 08:00 98.1 83 18 114/69 (84) 93 98.1 12/15/17 04:00 97.5 64 19 125/68 (87) 96 97.5 12/15/17 00:00 97.9 70 18 120/70 (87) 95 97.9 Height (Feet): 5 Height (Inches): 5.00 Weight (Pounds): 230 General Appearance: WD/WN, no acute distress HEENT: normocephalic, atraumatic, anicteric, mucous membranes moist, PERRL, EOMI, pharynx normal, supple, no JVD Respiratory/Chest: chest wall non-tender, lungs clear, normal breath sounds, no respiratory distress, no accessory muscle use Cardiovascular: normal peripheral pulses, normal rate, regular rhythm, no gallop/murmur, no JVD Abdomen: soft, non tender, no organomegaly, no mass, no scars, hypoactive bowel sounds, distended Genitourinary: normal external genitalia Extremities: no cyanosis, no clubbing Skin: no rash, no lesions, no ulcers Neurologic/Psychiatric: alert, oriented x 3, responsive Lymphatic: no neck adenopathy, no groin adenopathy Musculoskeletal: normal muscle bulk, no effusion Laboratory Tests Test 12/15/17 07:10 White Blood Count 6.9 K/UL (4.8-10.8) Red Blood Count 4.27 M/UL (4.20-5.40) Hemoglobin 12.3 G/DL (12.0-16.0) Hematocrit 36.6 % (37.0-47.0) L Mean Corpuscular Volume 86 FL (80-99) Mean Corpuscular Hemoglobin 28.8 PG (27.0-31.0) Mean Corpuscular Hemoglobin Concent 33.6 G/DL (32.0-36.0) Red Cell Distribution Width 12.6 % (11.6-14.8) Platelet Count 286 K/UL (150-450) Mean Platelet Volume 6.6 FL (6.5-10.1) Neutrophils (%) (Auto) 53.4 % (45.0-75.0) Lymphocytes (%) (Auto) 36.4 % (20.0-45.0) Monocytes (%) (Auto) 6.3 % (1.0-10.0) Eosinophils (%) (Auto) 2.8 % (0.0-3.0) Basophils (%) (Auto) 1.1 % (0.0-2.0) Sodium Level 139 MMOL/L (136-145) Potassium Level 3.0 MMOL/L (3.5-5.1) L Chloride Level 100 MMOL/L (98-107) Carbon Dioxide Level 31 MMOL/L (21-32) Anion Gap 8 mmol/L (5-15) Blood Urea Nitrogen 5 mg/dL (7-18) L Creatinine 0.7 MG/DL (0.55-1.30) Estimat Glomerular Filtration Rate > 60 mL/min (>60) Glucose Level 194 MG/DL (74-106) H Calcium Level 8.7 MG/DL (8.5-10.1) Phosphorus Level 2.8 MG/DL (2.5-4.9) Magnesium Level 1.5 MG/DL (1.8-2.4) L Current Medications Medications (Trade) Dose Ordered Sig/Tiff Route PRN Reason Start Time Stop Time Status Last Admin Dose Admin Acetaminophen (Tylenol) 650 mg Q4H PRN ORAL Mild Pain (Pain Scale 1-3) 12/14/17 00:00 01/13/18 00:00 Barium Sulfate (Readi-Cat 2) 450 ml NOW PRN ORAL Radiology Procedure 12/14/17 12:00 12/16/17 11:58 Dextrose (Dextrose 50%) 25 ml Q30M PRN IV Hypoglycemia 12/14/17 00:00 01/13/18 00:00 Dextrose (Dextrose 50%) 50 ml Q30M PRN IV Hypoglycemia 12/14/17 00:00 01/13/18 00:00 Dextrose/Sodium Chloride 1,000 ml @ 100 mls/hr Q10H IV 12/14/17 12:39 01/13/18 12:38 12/15/17 18:00 Enoxaparin Sodium (Lovenox) 40 mg DAILY SUBQ 12/14/17 09:00 01/13/18 08:59 12/15/17 09:16 Hydromorphone HCl (Dilaudid) 0.5 mg Q4H PRN IVP For Pain 12/14/17 01:45 12/21/17 01:44 12/15/17 17:56 Insulin Aspart (NovoLOG) BEFORE MEALS AND HS SUBQ 12/14/17 06:30 01/13/18 06:29 12/15/17 18:09 Iopamidol (Isovue-300 100ml) 100 ml NOW PRN INJ Radiology Procedure 12/14/17 12:00 Ondansetron HCl (Zofran) 4 mg Q6H PRN IVP Nausea & Vomiting 12/14/17 00:00 01/13/18 00:00 12/14/17 16:24 Piperacillin Sod/ Tazobactam Sod 3.375 gm/Sodium Chloride 110 ml @ 27.5 mls/hr Q8H IVPB 12/14/17 03:00 12/21/17 02:59 12/15/17 18:01 Pasquale Romo M.D. Dec 15, 2017 21:17
[2017-12-16] VITALS: BP 125/76
[2017-12-16] MEDS: HYDROmorphone 1mg/ml Carpuject IVP PRN ×2 (02:53→07:42)
[2017-12-16] MEDS: Piperacillin/Tazobactam 3.375 GM in NS 110 ML IVPB SCH ×2 (02:54→11:09)
[2017-12-16] MEDS: D5 1/2NS 1,000 ML IV SCH (02:54)
[2017-12-16 04:00] VITALS: BP 127/72
[2017-12-16] MEDS: NovoLOG Insulin Flexpen SUBQ SCH ×3 (06:19→17:15)
[2017-12-16 06:55] LABS: ANION GAP 6 mmol/L (5-15); BLOOD UREA NITROGEN 1 mg/dL (7-18); CALCIUM 8.9 MG/DL (8.5-10.1); CARBON DIOXIDE 34 MMOL/L (21-32); CHLORIDE 101 MMOL/L (98-107); CREATININE 0.6 MG/DL (0.55-1.30); POTASSIUM 3.4 MMOL/L (3.5-5.1); SODIUM 140 MMOL/L (136-145)
[2017-12-16 08:00] VITALS: BP 131/80
[2017-12-16] MEDS: Enoxaparin 40mg Inj SUBQ SCH (08:28)
--- NOTE | 2017-12-16 08:47 | Nephrology Progress Note ---
Assessment/Plan Assessment/Plan A/P 1) Abd Pain- resolved - Diverticulitis, WBC normalized - DC today on po Abx of ID choice - plan is for DC today on po Abx and patient to see her local GI in [facility] 2) DVT porphylaxsis- lovenox 3) Hypokalemia- replace today Subjective Date patient seen: Dec 16, 2017 Time patient seen: 08:45 ROS Limited/Unobtainable: No Allergies: Coded Allergies: MORPHINE (Verified Allergy, Unknown, 12/13/17) ZOLPIDEM (Verified Allergy, Unknown, 12/13/17) Subjective Patient says abdominal pain resolved and eating well Objective Last 24 Hour Vital Signs Date Time Temp Pulse Resp B/P (MAP) Pulse Ox O2 Delivery O2 Flow Rate FiO2 12/16/17 08:12 98.1 12/16/17 07:42 98.1 12/16/17 04:00 98.1 71 20 127/72 (90) 94 98.1 12/16/17 00:00 98.3 64 20 125/76 (92) 93 98.3 12/15/17 20:48 Room Air 12/15/17 20:00 98.1 73 20 137/90 (106) 97 98.1 12/15/17 19:40 Room Air 12/15/17 16:00 98.1 69 18 125/85 (98) 95 98.1 12/15/17 12:00 98.1 78 18 114/69 (84) 93 98.1 12/15/17 09:00 Room Air Intake and Output 12/15/17 12/16/17 19:00 07:00 Intake Total 1895.0 ml 2120.0 ml Balance 1895.0 ml 2120.0 ml Intake Oral 740 ml 800 ml IV Total 1155.0 ml 1320.0 ml # Voids 4 2 # Bowel Movements 1 Laboratory Tests 12/16/17 06:30: Sodium Level 140, Potassium Level 3.4L, Chloride Level 101, Carbon Dioxide Level 34H, Anion Gap 6, Blood Urea Nitrogen 1L, Creatinine 0.6, Estimat Glomerular Filtration Rate > 60, Glucose Level 217H, Calcium Level 8.9 Height (Feet): 5 Height (Inches): 5.00 Weight (Pounds): 230 General Appearance: no apparent distress, alert EENT: normal ENT inspection Neck: normal alignment, supple Cardiovascular: normal rate, regular rhythm Respiratory/Chest: lungs clear, normal breath sounds Abdomen: non tender, soft Edema: no edema noted Arm (L), no edema noted Arm (R), no edema noted Leg (L), no edema noted Leg (R), no edema noted Pedal (L), no edema noted Pedal (R), no edema noted Generalized Cosme Stoner MD Dec 16, 2017 08:47
--- NOTE | 2017-12-16 08:49 | Discharge Instructions ---
Discharge Instructions Discharge Instructions Services at Discharge: day care Diet: diabetic calorie control Resume Normal Activity?: Yes Activity: light activity Pneumonia Vaccine: pt rcvd vaccine this visit Follow Up Orders F/U PCP and GI 1 week in [place] For Congestive Heart Failure Reminder Report to your physician any weight gain of 5 pounds or more in one week. Cosme Stoner MD Dec 16, 2017 08:48
[2017-12-16 12:00] VITALS: BP 131/87
--- NOTE | 2017-12-16 12:16 | General Surgery Progress Note ---
General Surgery-Progress Note Subjective Symptoms: improved, tolerating diet, passing flatus Additional Comments pain improving. diarrhea. tolerating diet. Objective Last 24 Hour Vital Signs Date Time Temp Pulse Resp B/P (MAP) Pulse Ox O2 Delivery O2 Flow Rate FiO2 12/16/17 09:00 Room Air 12/16/17 08:12 98.1 12/16/17 08:00 98.2 78 22 131/80 (97) 97 98.2 12/16/17 07:42 98.1 12/16/17 04:00 98.1 71 20 127/72 (90) 94 98.1 12/16/17 00:00 98.3 64 20 125/76 (92) 93 98.3 12/15/17 20:48 Room Air 12/15/17 20:00 98.1 73 20 137/90 (106) 97 98.1 12/15/17 19:40 Room Air 12/15/17 16:00 98.1 69 18 125/85 (98) 95 98.1 I&O Intake and Output 12/15/17 12/16/17 19:00 07:00 Intake Total 1895.0 ml 2120.0 ml Balance 1895.0 ml 2120.0 ml Intake Oral 740 ml 800 ml IV Total 1155.0 ml 1320.0 ml # Voids 4 2 # Bowel Movements 1 Drains: none Cardiovascular: RSR Respiratory: clear Abdomen: soft, flat, non-tender, present bowel sounds Extremities: no edema, no tenderness, no cyanosis Laboratory Tests Test 12/16/17 06:30 Sodium Level 140 MMOL/L (136-145) Potassium Level 3.4 MMOL/L (3.5-5.1) L Chloride Level 101 MMOL/L (98-107) Carbon Dioxide Level 34 MMOL/L (21-32) H Anion Gap 6 mmol/L (5-15) Blood Urea Nitrogen 1 mg/dL (7-18) L Creatinine 0.6 MG/DL (0.55-1.30) Estimat Glomerular Filtration Rate > 60 mL/min (>60) Glucose Level 217 MG/DL (74-106) H Calcium Level 8.9 MG/DL (8.5-10.1) Plan Problems: (1) Colitis Assessment & Plan: 47F with acute colitis/diverticulitis. Afebrile, HD stable , leukocytosis, exam with LLQ tenderness. Fluid within nondistended loops of small bowel and within stomach without bowel wall thickening or surrounding inflammation can be normal or can be seen with gastroenteritis in the right clinical setting. No other acute or inflammatory disease or bowel obstruction. leukocytosis resolved pain improving diarrhea likely infectious colitis improving. No acute surgical intervention indicated diet as tolerated oral Abx d/c planning thank you for this consultation. will follow with recs. Joe Sinclair Dec 16, 2017 12:16
[2017-12-16 16:00] VITALS: BP 117/60
--- NOTE | 2017-12-16 17:47 | Infectious Diseases Prog Note ---
Assessment/Plan Problems: (1) Diverticulitis Assessment & Plan: was ruled out , with no evidence of complications on CT ABD such as perforations or abscess , will stop zosyn empirically since blood culture is negative , general surgery is following (2) Abdominal pain Assessment & Plan: due to the above , continue pain management and supportive care (3) Diarrhea Assessment & Plan: suspect due to the above, encourage hydration (4) Sepsis Assessment & Plan: ruled out , with negative blood culture stop zosyn (5) Colitis Assessment & Plan: suspect viral gastroenteritis , now resolving Subjective Constitutional: Reports: no symptoms HEENT: Reports: no symptoms Respiratory: Reports: no symptoms Breasts: Reports: no symptoms Cardiovascular: Reports: no symptoms Gastrointestinal/Abdominal: Reports: diarrhea, bloating Genitourinary: Reports: no symptoms Neurologic: Reports: no symptoms Psychiatric: Reports: no symptoms Skin: Reports: no symptoms Endocrine: Reports: no symptoms Hematologic: Reports: no symptoms Musculoskeletal: Reports: no symptoms Allergies: Coded Allergies: MORPHINE (Verified Allergy, Unknown, 12/13/17) ZOLPIDEM (Verified Allergy, Unknown, 12/13/17) Objective Vital Signs Last 24 Hour Vital Signs Date Time Temp Pulse Resp B/P (MAP) Pulse Ox O2 Delivery O2 Flow Rate FiO2 12/16/17 16:00 98.2 68 21 117/60 (79) 96 98.2 12/16/17 12:00 97.7 76 21 131/87 (102) 98 97.7 12/16/17 09:00 Room Air 12/16/17 08:12 98.1 12/16/17 08:00 98.2 78 22 131/80 (97) 97 98.2 12/16/17 07:42 98.1 12/16/17 04:00 98.1 71 20 127/72 (90) 94 98.1 12/16/17 00:00 98.3 64 20 125/76 (92) 93 98.3 12/15/17 20:48 Room Air 12/15/17 20:00 98.1 73 20 137/90 (106) 97 98.1 12/15/17 19:40 Room Air Height (Feet): 5 Height (Inches): 5.00 Weight (Pounds): 230 General Appearance: WD/WN, no acute distress HEENT: normocephalic, atraumatic, anicteric, mucous membranes moist, PERRL, EOMI, pharynx normal, supple, no JVD Respiratory/Chest: chest wall non-tender, lungs clear, normal breath sounds, no respiratory distress, no accessory muscle use Cardiovascular: normal peripheral pulses, normal rate, regular rhythm, no gallop/murmur, no JVD Abdomen: soft, non tender, no organomegaly, no mass, no scars, hypoactive bowel sounds, distended Extremities: no cyanosis, no clubbing Skin: no rash, no lesions Neurologic/Psychiatric: alert, oriented x 3, responsive Lymphatic: no neck adenopathy, no groin adenopathy Musculoskeletal: normal muscle bulk, no effusion Microbiology Date/Time Source Procedure Growth Status 12/14/17 16:25 Blood Blood Culture - Preliminary NO GROWTH AFTER 24 HOURS Resulted 12/14/17 16:20 Blood Blood Culture - Preliminary NO GROWTH AFTER 24 HOURS Resulted Laboratory Tests Test 12/16/17 06:30 Sodium Level 140 MMOL/L (136-145) Potassium Level 3.4 MMOL/L (3.5-5.1) L Chloride Level 101 MMOL/L (98-107) Carbon Dioxide Level 34 MMOL/L (21-32) H Anion Gap 6 mmol/L (5-15) Blood Urea Nitrogen 1 mg/dL (7-18) L Creatinine 0.6 MG/DL (0.55-1.30) Estimat Glomerular Filtration Rate > 60 mL/min (>60) Glucose Level 217 MG/DL (74-106) H Calcium Level 8.9 MG/DL (8.5-10.1) Current Medications Medications (Trade) Dose Ordered Sig/Tiff Route PRN Reason Start Time Stop Time Status Last Admin Dose Admin Acetaminophen (Tylenol) 650 mg Q4H PRN ORAL Mild Pain (Pain Scale 1-3) 12/14/17 00:00 01/13/18 00:00 Dextrose (Dextrose 50%) 25 ml Q30M PRN IV Hypoglycemia 12/14/17 00:00 01/13/18 00:00 Dextrose (Dextrose 50%) 50 ml Q30M PRN IV Hypoglycemia 12/14/17 00:00 01/13/18 00:00 Enoxaparin Sodium (Lovenox) 40 mg DAILY SUBQ 12/14/17 09:00 01/13/18 08:59 12/16/17 08:28 Insulin Aspart (NovoLOG) BEFORE MEALS AND HS SUBQ 12/14/17 06:30 01/13/18 06:29 12/16/17 17:15 Iopamidol (Isovue-300 100ml) 100 ml NOW PRN INJ Radiology Procedure 12/14/17 12:00 Ondansetron HCl (Zofran) 4 mg Q6H PRN IVP Nausea & Vomiting 12/14/17 00:00 01/13/18 00:00 12/14/17 16:24 Piperacillin Sod/ Tazobactam Sod 3.375 gm/Sodium Chloride 110 ml @ 27.5 mls/hr Q8H IVPB 12/14/17 03:00 12/21/17 02:59 12/16/17 11:09 Pasquale Romo M.D. Dec 16, 2017 17:47
--- NOTE | 2017-12-17 15:06 | Discharge Summary ---
Discharge Summary Discharge Summary _ DATE OF ADMISSION: 12/13/2017 DATE OF DISCHARGE: 12/16 REASON FOR ADMISSION: 47 years old female with past medical history of diabetes mellitus, colitis, presented with abdominal pain ,vomiting and diarrhea. Laboratory workup revealed leukocytosis ,hyponatremia, hypokalemia, and evidence of renal insufficiency. . Urinalysis with pyuria, but only occasional bacteria. CT of the abdomen and pelvis revealed fluid within nondistended loops of small bowel and within stomach without bowel wall thickening or surrounding inflammation can be normal or can be seen with gastroenteritis in the right clinical setting. No other acute inflammatory disease or bowel obstruction Patient started on empiric antibiotic. Patient was medicated for pain . Patient admitted for further management with diagnoses of abdominal pain due to possible diverticulitis /colitis/gastroenteritis, hypokalemia, hyponatremia ,acute kidney injury secondary to volume depletion. CONSULTANTS: ID specialist Dr. Romo general surgery Dr. Sinclair [facility] COURSE: Patient admitted to medical surgical floor . Patient started on IV fluids and broad spectrum antibiotics. Infectious disease specialist and general surgeon consulted. Pain management was addressed, and pain was controlled. Surgeon closely followed. Pain improved. Per surgeon, likely infectious colitis which was slowly improving. Leukocytosis resolved. No acute surgical intervention was indicated as per surgeon. Patient was slowly started on diet, and diet was advanced as tolerated. Supportive care provided ,antiemetics were on board as needed. Diarrhea stopped. ID specialist closely followed. Blood culture negative. Diverticulitis was ruled out , no evidence of complications on CT of abdomen , such as perforations or abscess . No need for further antibiotics as per infectious disease specialist. Per ID specialist, abdominal pain was likely due to viral gastroenteritis. Renal parameters and electrolytes were closely monitored. Electrolytes corrected. Nephrotoxins were avoided. Acute kidney injury was likely due to volume depletion, and resolved. Creatinine down to 0.6 prior to discharge DVT and GI prophylaxis provided Blood sugar was managed with sliding scale of insulin ,remained stable . Patient clinically improved and was ready for discharge home. FINAL DIAGNOSES: Colitis Likely viral gastroenteritis Hypokalemia Hyponatremia Acute kidney injury Abdominal pain secondary to colitis/gastroenteritis- resolved Diabetes mellitus DISCHARGE MEDICATIONS: See Medication Reconciliation list. DISCHARGE INSTRUCTIONS: Patient was discharged home Follow up with primary care provider in one week. I have been assigned to dictate discharge summary for this account. I was not involved in the patient's management. Yudy Luz NP Dec 17, 2017 15:06
== END 2017-12-16 18:00 | disposition home or self-care (01) | DRG 392 ==
LOC: EMR 21:07 → 4E 23:18 → EDBEDREQ 12-14 00:09 → 4E 12-14 19:03
DX: A08.4 Viral intestinal infection, unspecified (principal); N17.9 Acute kidney failure, unspecified; E87.1 Hypo-osmolality and hyponatremia; R10.9 Unspecified abdominal pain; E87.6 Hypokalemia; E11.9 Type 2 diabetes mellitus without complications; K52.9 Noninfective gastroenteritis and colitis, unspecified; Z88.6 Allergy status to analgesic agent; Z88.0 Allergy status to penicillin; Z23 Encounter for immunization
CPT/HCPCS: 36415; 74177; 80048; 80053; 81003; 81025; 82962; 83690; 83735; 84100; 85025; 87040; 90686; 96365; 96375; 99285; J1815; J2405; J8499